=== PATIENT | male | born 1965 | race Caucasian/White ===

== ENCOUNTER 2024-11-29 06:19 | Day surgery (SDC) | payer BC, SELFPAY | END 2024-11-29 10:53 | disposition home or self-care (01) | LOC: GI 06:19 | PROVIDERS: ATTENDING PHYSICIAN Internal Medicine Gastroenterology | DX: Z12.11 Encounter for screening for malignant neoplasm of colon (principal); K57.30 Diverticulosis of large intestine without perforation or abscess without bleeding; K64.8 Other hemorrhoids; Z87.19 Personal history of other diseases of the digestive system | CPT/HCPCS: 45380; 88305 ==

== ENCOUNTER 2025-03-21 06:22 | Day surgery (SDC) | payer BC, SELFPAY ==
[2025-03-11 13:58] VITALS: BMI 23.3
[2025-03-11 15:00] LABS: Hematocrit 40.8 % (39.0-52.0); Hemoglobin 14.6 g/dL (13.0-18.0); Mean Corp Hgb Conc. 35.8 g/dL (33.0-37.0); Mean Corpuscular Volume 92.9 fL (80.0-94.0); Platelet Count 299 10^3/uL (130-400); Red Cell Dist. Width 12.4 % (11.5-14.5)
[2025-03-11 16:24] LABS: ALT (SGPT) 18 U/L (0-50); AST (SGOT) 28 U/L (17-59); Albumin 4.4 g/dl (3.5-5.0); Alkaline Phosphatase 51 U/L (38-126); Blood Urea Nitrogen 11 mg/dl (9-20); Calcium 9.4 mg/dl (8.4-10.2); Carbon Dioxide 30 mmol/L (22-30); Chloride 102 mmol/L (98-107); Estimated Creatinine Clearance 94 ml/min; Glucose 100 mg/dl (70-99); Potassium 4.2 mmol/L (3.5-5.1); Sodium 137 mmol/L (135-145); Total Protein 7.0 g/dl (6.3-8.2); eGFR > 60.00
[2025-03-21] VITALS (8 sets, daily range): BP systolic 112–140; BP diastolic 63–85; BMI 23.3
[2025-03-21] MEDS: TYLENOL 1000 MG PO (12:40)
[2025-03-21] MEDS: NORMOSOL-R/PLASMALYTE-A 1000 IV (12:41)
== END 2025-03-21 17:04 | disposition home or self-care (01) ==
LOC: SDS 06:22
PROVIDERS: ATTENDING PHYSICIAN Surgery; FAMILY PHYSICIAN Family Medicine
DX: K40.90 Unilateral inguinal hernia, without obstruction or gangrene, not specified as recurrent (principal)
CPT/HCPCS: 49650; 36415; 80053; 85027; 93005; C1781